=== PATIENT | male | born 1960 | race Caucasian/White ===

== ENCOUNTER 2016-11-25 18:13 | Emergency (ER) | payer MEDICARE, OTHER ==
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
--- NOTE | 2016-11-25 18:51 | RADIOLOGY REPORT (SQ) ---
EXAM DESCRIPTION: CT HEAD WITHOUT COMPLETED DATE/TIME: 11/25/2016 6:27 pm REASON FOR STUDY: right gaze palsy COMPARISON: 08/04/2014 TECHNIQUE: Axial images acquired through the brain without intravenous contrast. Images reviewed wi th bone, brain and subdural windows. Images stored on PACS. All CT scanners at this facility use dose modulation, iterative reconstruction, and/or weight based d osing when appropriate to reduce radiation dose to as low as reasonably achievable (ALARA). [facility]: Dose Right [facility]: CareDose [facility]: Dose Right [facility]: Teradose 4D [facility]: [employer] RADIATION DOSE: Total exam DLP: 3169 mGy cm. LIMITATIONS: Motion artifact. FINDINGS: VENTRICLES: Normal size and contour. CEREBRUM: No masses. No hemorrhage. No midline shift. No evidence for acute infarction. Normal gra y/white matter differentiation. No areas of low density in the white matter. CEREBELLUM: No masses. No hemorrhage. No alteration of density. No evidence for acute infarction. EXTRAAXIAL SPACES: No fluid collections. No masses. ORBITS AND GLOBE: No intra- or extraconal masses. Normal contour of globe without masses. CALVARIUM: No fracture. PARANASAL SINUSES: No fluid or mucosal thickening. SOFT TISSUES: No mass or hematoma. OTHER: No other significant finding. IMPRESSION: NO ACUTE INTRACRANIAL IMAGING FINDINGS. EVIDENCE OF ACUTE STROKE: NO. COMMENT: Findings were discussed with Dr Hightower at 1845 hours on this date. Quality ID # [id number]: Final reports with documentation of one or more dose reduction techniques (e.g., Au tomated exposure control, adjustment of the mA and/or kV according to patient size, use of iterative reconstruction technique) TECHNICAL DOCUMENTATION: JOB ID: [id number]- All Rights Reserved
--- NOTE | 2016-11-25 18:55 | RADIOLOGY REPORT (SQ) ---
EXAM DESCRIPTION: CHEST SINGLE VIEW COMPLETED DATE/TIME: 11/25/2016 6:28 pm REASON FOR STUDY: right gaze palsy COMPARISON: 08/04/2014 EXAM PARAMETERS: NUMBER OF VIEWS: One view. TECHNIQUE: Single frontal radiographic view of the chest acquired. RADIATION DOSE: NA LIMITATIONS: None. FINDINGS: LUNGS AND PLEURA: Subsegmental atelectasis is suggested in the left base. MEDIASTINUM AND HILAR STRUCTURES: No masses. Contour normal. HEART AND VASCULAR STRUCTURES: Heart normal in size. Normal vasculature. BONES: No acute findings. HARDWARE: None in the chest. OTHER: No other significant finding. IMPRESSION: NO ACUTE RADIOGRAPHIC FINDING IN THE CHEST. TECHNICAL DOCUMENTATION: JOB ID: [id number]
[2016-11-25] MEDS ORDERED: ALTEPLASE INJ 100 MG VIAL IV ONE (18:57)
[2016-11-25 19:00] LABS: PROTHROMBIN TIME 14.2 SEC (11.4-15.4)
[2016-11-25 19:07] LABS: ABSOLUTE EOSINOPHILS # (AUTO) 0.1 10^3/uL (0.0-0.6); ABSOLUTE LYMPHOCYTES (AUTO) 1.9 10^3/uL (0.5-4.7); ABSOLUTE MONOCYTES (AUTO) 0.5 10^3/uL (0.1-1.4); ABSOLUTE NEUT (AUTO) 2.2 10^3/uL (1.7-8.2); BASOPHILS % (AUTO) 0.7 % (0-2); EOSINOPHILS % (AUTO) 1.6 % (0-6); HEMATOCRIT 43.3 % (37.9-51.0); HEMOGLOBIN 15.1 g/dL (13.5-17.0); LYMPHOCYTES % (AUTO) 40.5 % (13-45); MEAN CORPUSCULAR HEMOGLOBIN 30.8 pg (27.0-33.4); MEAN CORPUSCULAR HGB CONC 34.9 g/dL (32.0-36.0); MEAN CORPUSCULAR VOLUME 88 fl (80-97); MONOCYTES % (AUTO) 10.8 % (3-13); RED BLOOD COUNT 4.91 10^6/uL (4.35-5.55); RED CELL DISTRIBUTION WIDTH 13.8 % (11.5-14.0); SEGMENTED NEUTROPHILS % (AUTO) 46.4 % (42-78); WHITE BLOOD COUNT 4.8 10^3/uL (4.0-10.5)
[2016-11-25 19:16] LABS: ALANINE AMINOTRANSFERASE 40 U/L (21-72); ALBUMIN 4.2 g/dL (3.5-5.0); ALKALINE PHOSPHATASE 58 U/L (38-126); ANION GAP 9 (5-19); ASPARTATE AMINO TRANSFERASE 34 U/L (17-59); BILIRUBIN,DIRECT 0.4 mg/dL (0.0-0.4); BILIRUBIN,TOTAL 0.9 mg/dL (0.2-1.3); BLOOD UREA NITROGEN 13 mg/dL (7-20); CALCIUM 9.2 mg/dL (8.4-10.2); CARBON DIOXIDE 25 mmol/L (22-30); CHLORIDE 108 mmol/L (98-107); CREATINE KINASE 86 U/L (55-170); CREATININE RESULT 0.81 mg/dL (0.52-1.25); GLUCOSE 106 mg/dL (75-110); POTASSIUM 4.1 mmol/L (3.6-5.0); SODIUM 141.9 mmol/L (137-145); TOTAL PROTEIN 7.1 g/dL (6.3-8.2)
[2016-11-25] MEDS ORDERED: MORPHINE SULFATE 10 MG/ML INJ IV ONE (21:00)
--- NOTE | 2016-11-25 21:15 | EKG REPORT ---
SEVERITY:- ABNORMAL ECG - SINUS RHYTHM LEFT BUNDLE BRANCH BLOCK : Confirmed by: Holly Torres MD 25-Nov-2016 21:15:10
[2016-11-25 21:20] VITALS: BP 121/80
== END 2016-11-25 21:25 | disposition short-term general hospital (02) ==
LOC: ER 18:13
DX: F03.90 Unspecified dementia, unspecified severity, without behavioral disturbance, psychotic disturbance, mood disturbance, and anxiety (principal); R20.0 Anesthesia of skin; R29.810 Facial weakness; G51.0 Bell's palsy; I48.91 Unspecified atrial fibrillation; E11.9 Type 2 diabetes mellitus without complications; K21.9 Gastro-esophageal reflux disease without esophagitis; Z87.820 Personal history of traumatic brain injury
CPT/HCPCS: 93005; 99291; 96375; 96365; 36415; 82962; 82550; 85025; 85610; 85730; 80053; 84484; 71010; 70450; 93010; J2270; J2997

== ENCOUNTER 2017-09-18 14:13 | Emergency (ER) | payer MEDICARE, OTHER ==
[2017-09-18 14:21] VITALS: BP 110/70
--- NOTE | 2017-09-18 14:37 | ER Document Report ---
HPI - HPI Patient complains to provider of: Staple removal Onset: Other - Scalp Pain Level: Denies Context: 57-year-old male here for staple removal that were placed on the top of his head a week ago. There is no drainage or problems with the area. Associated Symptoms: None Exacerbated by: Denies Relieved by: Denies - ROS ROS below otherwise negative: Yes Systems Reviewed and Negative: Yes All other systems reviewed and negative - REPRODUCTIVE Reproductive: DENIES: : Past Medical History - General Information source: Patient, Relative - Social History Smoking Status: Unknown if Ever Smoked Frequency of alcohol use: None Drug Abuse: None Lives with: Spouse/Significant other Family History: Reviewed & Not Pertinent - Past Medical History Cardiac Medical History: Reports: Hx Hypercholesterolemia, Hx Hypertension Pulmonary Medical History: Neurological Medical History: Endocrine Medical History: Reports: Hx Diabetes Mellitus Type 2 GI Medical History: Reports: Hx Gastroesophageal Reflux Disease Musculoskeletal Medical History: Psychiatric Medical History: Reports: Hx Dementia, Hx Depression Traumatic Medical History: Reports: Hx Traumatic Brain Injury Past Surgical History: Denies: Hx Pacemaker - Immunizations Hx Diphtheria, Pertussis, Tetanus Vaccination: Yes Vertical Provider Document - CONSTITUTIONAL Agree With Documented VS: Yes Exam Limitations: No Limitations General Appearance: No Apparent Distress - INFECTION CONTROL TRAVEL OUTSIDE OF THE [place] IN LAST 30 DAYS: No - HEENT Notes: Scabbed top of his head laceration approximated with 3 bobby that are ready to be removed - NECK Neck: Supple Course - Vital Signs Vital signs: Temp Pulse Resp BP Pulse Ox 99.4 F 67 20 110/70 95 09/18/17 14:19 09/18/17 14:19 09/18/17 14:19 09/18/17 14:19 09/18/17 14:19 Discharge - Discharge Clinical Impression: Removal of staple Condition: Good Disposition: HOME, SELF-CARE Instructions: Staple Removal ([facility]) Additional Instructions: Wash hair gently Return to the emergency room any concerns Referrals: NATALIYA MUIR DO [Primary Care Provider] - Follow up as needed
== END 2017-09-18 14:58 | disposition home or self-care (01) ==
LOC: ER 14:13
DX: S01.01XD Laceration without foreign body of scalp, subsequent encounter (principal); X58.XXXD Exposure to other specified factors, subsequent encounter; E11.9 Type 2 diabetes mellitus without complications

== ENCOUNTER 2019-02-28 13:42 | Emergency (ER) | payer OTHER, MEDICARE ==
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
[2019-02-28 20:37] VITALS: BP 135/74
== END 2019-02-28 23:00 | disposition home or self-care (01) ==
LOC: ER 13:42
DX: Z04.89 Encounter for examination and observation for other specified reasons (principal); I10 Essential (primary) hypertension; E11.9 Type 2 diabetes mellitus without complications; Z87.820 Personal history of traumatic brain injury
CPT/HCPCS: 70450; 70486; 99284

== ENCOUNTER 2019-06-24 11:05 | Emergency (ER) | payer OTHER, MEDICARE ==
--- NOTE | 2019-06-24 11:28 | ER Document Report ---
ED Fall - General Stated Complaint: FALL, FACIAL INJURY Time Seen by Provider: 06/24/19 11:17 Primary Care Provider: NATALIYA MUIR DO [Primary Care Provider] - Follow up as needed Notes: CHIEF COMPLAINT: Multiple injuries from fall HPI: History from the patient is limited secondary to dementia history. A 59-year-old male brought for evaluation of injury sustained in a trip and fall. Patient was running down the [place] of his facility towards the [facility] room when he tripped and fell striking the floor. No apparent loss of consciousness per nursing. Patient has been ambulatory per nursing. Patient sustained injury to the face and mouth ROS: See HPI -limited secondary to patient mental status MEDICATIONS: I agree with the patient medications as charted by the RN. ALLERGIES: I agree with the allergies as charted by the RN. PAST MEDICAL HISTORY/PAST SURGICAL HISTORY: Reviewed and agree as charted by RN. SOCIAL HISTORY: Reviewed and agree as charted by RN. FAMILY HISTORY: No significant familial comorbid conditions directly related to patient complaint EXAM: Reviewed vital signs as charted by RN. CONSTITUTIONAL: Alert and oriented and responds to name. Well-appearing; well- nourished HEAD: Normocephalic; bruising with abrasion over the left eyebrow is noted there is bruising also to the inferior left orbital region. Negative chavez sign. No discharge or drainage from the nares EYES: PERRL; Conjunctivae clear, sclerae non-icteric ENT: normal nose; no rhinorrhea; moist mucous membranes; pharynx without lesions noted, no uvula edema or deviation, no tonsillar hypertrophy, phonation normal. There is a superficial abrasion on the inner aspect of the left upper lip. There is bruising to the gingiva at the base of the left upper lateral incisor and canine but teeth are otherwise stable. NECK: Supple without meningismus; non-tender; no cervical lymphadenopathy, no masses CARD: RRR; no murmurs, no clicks, no rubs, no gallops; symmetric distal pulses RESP: Normal chest excursion without splinting or tachypnea; breath sounds clear and equal bilaterally; no wheezes, no rhonchi, no rales, pulse oximetry 97% on room air not hypoxic ABD/GI: Normal bowel sounds; non-distended; soft, non-tender, no rebound, no gu arding; no palpable organomegaly or masses. BACK: The back appears normal and is non-tender to palpation, there is no CVA tenderness EXT: Normal ROM in all joints; non-tender to palpation; no cyanosis, no effusions, no edema. No tenderness on palpation of the pelvis. Patient is able to lift both legs off the bed without difficulty or discomfort SKIN: Normal color for age and race; warm; dry; good turgor; no acute lesions noted NEURO: Moves all extremities equally; Motor and sensory function intact PSYCH: The patient's mood and manner are appropriate. Grooming and personal hygiene are appropriate. MDM: 59-year-old male with dementia history brought for evaluation of facial injury sustained in a mechanical fall. Is in a cervical collar per EMS no backboard. Will obtain CT imaging of the head cervical spine and face to evaluate injuries for fracture or bleed TRAVEL OUTSIDE OF THE [place] IN LAST 30 DAYS: No - Related data Allergies/Adverse Reactions: No Known Allergies Allergy (Verified 02/28/19 15:26) Past Medical History - Social History Smoking Status: Unknown if Ever Smoked Family History: Reviewed & Not Pertinent - Past Medical History Cardiac Medical History: Reports: Hx Hypercholesterolemia, Hx Hypertension Pulmonary Medical History: Neurological Medical History: Endocrine Medical History: Reports: Hx Diabetes Mellitus Type 2 GI Medical History: Reports: Hx Gastroesophageal Reflux Disease Musculoskeletal Medical History: Psychiatric Medical History: Reports: Hx Dementia, Hx Depression Traumatic Medical History: Reports: Hx Traumatic Brain Injury Past Surgical History: Denies: Hx Pacemaker - Immunizations Hx Diphtheria, Pertussis, Tetanus Vaccination: Yes Physical Exam - Vital signs Vitals: Temp Pulse Resp BP Pulse Ox 98.6 F 55 L 20 129/89 H 100 06/24/19 11:06/24/19 11:06/24/19 11:06/24/19 11:06/24/19 11:26 Course - Re-evaluation Re-evalutation: 06/24/19 12:21 CT imaging does not show evidence of bleed or fracture. Will take the patient out of the cervical collar. Nursing will ambulate the patient prior to discharg e - Vital Signs Vital signs: Temp Pulse Resp BP Pulse Ox 98.6 F 55 L 20 129/89 H 100 06/24/19 11:06/24/19 11:06/24/19 11:06/24/19 11:06/24/19 11:26 Discharge - Discharge Clinical Impression: Fall Qualifiers: Encounter type: initial encounter Qualified Code(s): W19.XXXA - Unspecified fall, initial encounter Contusion of face Qualifiers: Encounter type: initial encounter Qualified Code(s): S00.83XA - Contusion of other part of head, initial encounter Dental contusion Qualifiers: Encounter type: initial encounter Qualified Code(s): S00.532A - Contusion of oral cavity, initial encounter Condition: Stable Disposition: HOME, SELF-CARE Instructions: Contusion ([facility]) Additional Instructions: Cool compresses to the left facial region to help with bruising and swelling. Apply a small amount of antibiotic ointment to the abrasion until healed. Motrin or Tylenol for pain. Imaging studies did not show evidence of fractures or bleeding. Rinse the mouth with warm salt water once or twice daily to help with healing of the wound in the mouth Referrals: NATALIYA MUIR, [Primary Care Provider] - Follow up as needed
--- NOTE | 2019-06-24 12:15 | RADIOLOGY REPORT (SQ) ---
EXAM DESCRIPTION: CT HEAD WITHOUT IMAGES COMPLETED DATE/TIME: 06/24/2019 11:48 am REASON FOR STUDY: trauma fall COMPARISON: 02/28/2019 TECHNIQUE: Axial images acquired through the brain without intravenous contrast. Images reviewed wi th bone, brain and subdural windows. Additional sagittal and coronal reconstructions were generated. Images stored on PACS. All CT scanners at this facility use dose modulation, iterative reconstruction, and/or weight based d osing when appropriate to reduce radiation dose to as low as reasonably achievable (ALARA). [facility]: Dose Right [facility]: CareDose [facility]: Dose Right [facility]: Teradose 4D [facility]: SMR SITE RADIATION DOSE: CT Rad equipment meets quality standard of care and radiation dose reduction techniq ues were employed. CTDIvol: 53.2 mGy. DLP: 1150 mGy-cm.mGy. LIMITATIONS: None. FINDINGS: VENTRICLES: Prominent. Ex vacuo dilation of the right lateral ventricle. CEREBRUM: No intracranial hemorrhage. There is a large area of hypoattenuation involving the right t emporal lobe and basal ganglia predominantly compatible with prior infarct and stable. No evidence o f new large vascular territory infarct. No mass or mass effect. CEREBELLUM: No masses. No hemorrhage. No alteration of density. No evidence for acute infarction. EXTRAAXIAL SPACES: Age-related involutional change. No fluid collections. No masses. ORBITS AND GLOBE: No intra- or extraconal masses. Normal contour of globe without masses. CALVARIUM: No fracture. PARANASAL SINUSES: No fluid or mucosal thickening. SOFT TISSUES: Soft tissue swelling over the left orbit. OTHER: No other significant finding. IMPRESSION: 1. No evidence of acute intracranial abnormality. Soft tissue swelling of the left orb it. 2. Chronic right MCA territory infarct, stable. EVIDENCE OF ACUTE STROKE: NO. TECHNICAL DOCUMENTATION: JOB ID: [id number] Quality ID # [id number]: Final reports with documentation of one or more dose reduction techniques (e.g., Au tomated exposure control, adjustment of the mA and/or kV according to patient size, use of iterative reconstruction technique) 2010 [email or web address]- All Rights Reserved Reading location - IP/workstation name: [email or web address]
--- NOTE | 2019-06-24 12:19 | RADIOLOGY REPORT (SQ) ---
EXAM DESCRIPTION: CT FACIAL AREA WITHOUT; CT CERVICAL SPINE WITHOUT IMAGES COMPLETED DATE/TIME: 06/24/2019 11:48 am REASON FOR STUDY: fall COMPARISON: None. TECHNIQUE: Axial images acquired through the facial bones and cervical spine without intravenous con trast. Images reviewed with lung, soft tissue and bone windows. Reconstructed coronal and sagittal MPR images reviewed. Images stored on PACS. All CT scanners at this facility use dose modulation, iterative reconstruction, and/or weight based d osing when appropriate to reduce radiation dose to as low as reasonably achievable (ALARA). [facility]: Dose Right [facility]: CareDose [facility]: Dose Right [facility]: Teradose 4D [facility]: [employer] RADIATION DOSE: CT Rad equipment meets quality standard of care and radiation dose reduction techniq ues were employed. CTDIvol: 13.7 mGy. DLP: 259 mGy-cm.; CT Rad equipment meets quality standard of ca re and radiation dose reduction techniques were employed. CTDIvol: 19.1 mGy. DLP: 347 mGy-cm. mGy. LIMITATIONS: None. FINDINGS: Facial bones No fracture. Orbits intact. Left periorbital soft tissue swelling without suggested foreign body. No drainable collections. Clear paranasal sinuses. Cervical spine Normal alignment. No evidence of fracture or bone lesion. Spondylosis including disc space narrowin g and small osteophytes. Soft tissues normal. IMPRESSION: 1. No evidence of acute facial fracture. 2. No evidence of cervical spine malalignment or fracture. TECHNICAL DOCUMENTATION: JOB ID: [id number] Quality ID # 436: Final reports with documentation of one or more dose reduction techniques (e.g., Au tomated exposure control, adjustment of the mA and/or kV according to patient size, use of iterative reconstruction technique) 2010 [employer]- All Rights Reserved Reading location - IP/workstation name: [email or web address]
--- NOTE | 2019-06-24 12:19 | RADIOLOGY REPORT (SQ) ---
EXAM DESCRIPTION: CT FACIAL AREA WITHOUT; CT CERVICAL SPINE WITHOUT IMAGES COMPLETED DATE/TIME: 06/24/2019 11:48 am REASON FOR STUDY: fall COMPARISON: None. TECHNIQUE: Axial images acquired through the facial bones and cervical spine without intravenous con trast. Images reviewed with lung, soft tissue and bone windows. Reconstructed coronal and sagittal MPR images reviewed. Images stored on PACS. All CT scanners at this facility use dose modulation, iterative reconstruction, and/or weight based d osing when appropriate to reduce radiation dose to as low as reasonably achievable (ALARA). [facility]: Dose Right [facility]: CareDose [facility]: Dose Right [facility]: Teradose 4D [facility]: [employer] RADIATION DOSE: CT Rad equipment meets quality standard of care and radiation dose reduction techniq ues were employed. CTDIvol: 13.7 mGy. DLP: 259 mGy-cm.; CT Rad equipment meets quality standard of ca re and radiation dose reduction techniques were employed. CTDIvol: 19.1 mGy. DLP: 347 mGy-cm. mGy. LIMITATIONS: None. FINDINGS: Facial bones No fracture. Orbits intact. Left periorbital soft tissue swelling without suggested foreign body. No drainable collections. Clear paranasal sinuses. Cervical spine Normal alignment. No evidence of fracture or bone lesion. Spondylosis including disc space narrowin g and small osteophytes. Soft tissues normal. IMPRESSION: 1. No evidence of acute facial fracture. 2. No evidence of cervical spine malalignment or fracture. TECHNICAL DOCUMENTATION: JOB ID: [id number] Quality ID # [id number]: Final reports with documentation of one or more dose reduction techniques (e.g., Au tomated exposure control, adjustment of the mA and/or kV according to patient size, use of iterative reconstruction technique) 2010 [employer]- All Rights Reserved Reading location - IP/workstation name: [email or web address]
[2019-06-24 13:26] VITALS: BP 120/75
== END 2019-06-24 13:32 | disposition home or self-care (01) ==
LOC: ER 11:05
DX: S00.532A Contusion of oral cavity, initial encounter (principal); S00.83XA Contusion of other part of head, initial encounter; F03.90 Unspecified dementia, unspecified severity, without behavioral disturbance, psychotic disturbance, mood disturbance, and anxiety; W01.0XXA Fall on same level from slipping, tripping and stumbling without subsequent striking against object, initial encounter; E78.00 Pure hypercholesterolemia, unspecified; I10 Essential (primary) hypertension; E11.9 Type 2 diabetes mellitus without complications
CPT/HCPCS: 70450; 70486; 72125; 99284

== ENCOUNTER 2019-07-19 05:47 | Emergency (ER) | payer OTHER, MEDICARE ==
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
--- NOTE | 2019-07-19 07:54 | RADIOLOGY REPORT (SQ) ---
Nasal bones three view on 07/19/2019 at 7:31 AM CLINICAL INDICATION: Nasal injury, pain COMPARISON: CT from 06/24/2019 FINDINGS: Tiny chronic calcification is noted along the superior distal aspect of the nasal bone. Subcutaneous calcifications are noted in the upper lip soft tissues. Paranasal sinuses appear clear. No acute fracture is noted. IMPRESSION: No acute abnormality.
[2019-07-19 08:52] VITALS: BP 110/74
== END 2019-07-19 08:52 | disposition home or self-care (01) ==
LOC: ER 05:47
DX: S09.93XA Unspecified injury of face, initial encounter (principal); S00.83XA Contusion of other part of head, initial encounter; S00.33XA Contusion of nose, initial encounter; R04.0 Epistaxis; R51 Headache; W06.XXXA Fall from bed, initial encounter; I10 Essential (primary) hypertension; E11.9 Type 2 diabetes mellitus without complications
CPT/HCPCS: 70160; 99283